=== PATIENT | female | born 1975 | race Caucasian/White ===

== ENCOUNTER 2019-09-02 16:00 | Emergency (ER) | payer OTHER, SELFPAY ==
--- NOTE | ~2019-09-02 | XR_ITS ---
EXAMINATION: XR chest 2V DATE: 09/02/2019 17:33 INDICATION: 5 weeks of productive cough TECHNIQUE: frontal and lateral views of the chest were obtained. COMPARISON: Chest radiograph dated 08/23/2016 FINDINGS: The lungs remain clear with no focal airspace opacities, pulmonary edema, pleural effusion or pneumot horax. The cardiomediastinal silhouette is normal. Visualized bones and soft tissues are unremarkable . IMPRESSION: 1. No acute cardiopulmonary disease. Reviewed, dictated and finalized at location A. [employer]
[2019-09-02 16:20] VITALS: BP 126/74; PULSE 81; RESP 16; TEMP 37.3; O2SAT 99
--- NOTE | 2019-09-02 17:01 | ED.URI ---
HPI - URI/Sore Throat General Chief Complaint: Upper Respiratory Infection Stated Complaint: Cough/Congestion Time Seen by Provider: 09/02/19 16:54 Source: patient and RN notes reviewed Mode of arrival: ambulatory Limitations: no limitations History of Present Illness HPI Narrative: Patient presents today with a one-month history of cough. After 3 weeks, patient believes she was improving, but then worsened again several days ago. Reports the cough was productive initially at times, but is no longer. She also complains of fatigue. was recently diagnosed with aspiration pneumonia and she has been at the hospital with him for the past week. Reports history of asthma. She has been occasionally taking NyQuil, Mucinex, and using an inhaler without relief. She does not smoke or vape. MD elicited complaint: cough Related Data Allergies Allergy/AdvReac Type Severity Reaction Status Date / Time Penicillins AdvReac Intermediate Nausea and Verified 09/02/19 16:50 Vomiting Review of Systems Review of Systems: Narrative: CONSTITUTIONAL: Denies body aches, fever, chills, or sweats.+ Fatigue EYES: Denies visual changes, redness, or discharge. ENT: Denies rhinorrhea, congestion, sore throat, or otalgia. CARDIOVASCULAR: Denies chest pain, palpitations, or edema. RESPIRATORY: Denies dyspnea.+ Cough GASTROINTESTINAL: Denies abdominal pain, nausea, vomiting, or diarrhea. GENITOURINARY: Denies dysuria or hematuria. SKIN: Denies rash, itching, or wounds. MUSCULOSKELETAL: Denies back pain, joint pain, or myalgia. NEUROLOGIC: Denies headache, numbness, tingling, or weakness. PSYCH: Denies depression or anxiety. [facility] Past Medical History Medical History (Updated 09/02/19 @ 17:45 by Tita Bailey, [facility], ) Asthma Family History Family History (Updated 03/02/17 @ 13:11 by DOCTOR UNKNOWN) Father Hypertension Family history of lung cancer Family history of hypercholesterolemia Cerebrovascular accident Mother Family history of chronic obstructive pulmonary disease Grandparent Diabetes mellitus Cerebrovascular accident Family history of lung cancer Social History Social History Smoking status: Never smoker Second hand tobacco smoke exposure: No Alcohol intake: current Comments At time of signature, I have reviewed and agree with nursing past medical, surgical, social and family history unless otherwise noted. Please see nursing chart for further information. There is no relevant family history pertinent to the presenting complaint Exam Narrative: Exam Narrative: GENERAL: Well-appearing, well-nourished, and in no acute distress. HEAD: Normocephalic, atraumatic. EYES: EOMI. No redness or drainage. Conjunctivae normal. ENT: Mucous membranes pink and moist. Nares clear. No rhinorrhea. TMs normal bilaterally. Throat normal. Uvula midline. NECK: Normal AROM. Supple. No lymphadenopathy. CHEST: No respiratory distress. Clear to auscultation. HEART: Regular rate and rhythm. No murmur appreciated. Normal peripheral pulses. EXTREMITIES: Normal range of motion. No edema. SKIN: Warm, dry, no rash. NEURO: No focal deficits. Alert and oriented x3. Gait steady. PSYCH: Normal affect. No signs of depression or anxiety. Course Vital Signs Vital signs: Vital Signs Temperature 99.2 F 09/02/19 16:20 Pulse Rate 81 09/02/19 16:20 Respiratory Rate 16 09/02/19 16:20 Blood Pressure 126/74 09/02/19 16:20 Pulse Oximetry 99 09/02/19 16:20 Temperature 99.2 F 09/02/19 16:20 Pulse Rate 81 09/02/19 16:20 Respiratory Rate 16 09/02/19 16:20 Blood Pressure 126/74 09/02/19 16:20 Pulse Oximetry 99 09/02/19 16:20 Reviewed. Pt has been instructed to follow up with her PCP regarding her elevated blood pressure today. MDM - URI/Sore Throat Differential Diagnosis Differential diagnosis: Likely upper respiratory infection, bronchitis and other (Pneumonia) Imaging Data Radiologis
== END 2019-09-02 17:48 | disposition home or self-care (01) ==
PROVIDERS: Emergency Provider Nurse Practitioner
DX: J40 Bronchitis, not specified as acute or chronic (principal); K21.9 Gastro-esophageal reflux disease without esophagitis; M19.90 Unspecified osteoarthritis, unspecified site
CPT/HCPCS: 71046; 99213; G0463

== ENCOUNTER 2019-10-10 07:56 | Emergency (ER) | payer OTHER, SELFPAY ==
--- NOTE | ~2019-10-10 | XR_ITS ---
EXAMINATION: XR elbow RT min 3V DATE: 10/10/2019 08:34 INDICATION: Right elbow injury and pain. TECHNIQUE: 4 views of right elbow were obtained. COMPARISON: None. FINDINGS: Bone alignment is normal. No fracture. Joint spaces are well maintained. There is no elbow joint effusion. IMPRESSION: 1. Normal right elbow. Reviewed, dictated and finalized at location A. IMPRESSION: 1. Normal right elbow.
--- NOTE | ~2019-10-10 | XR_ITS ---
EXAMINATION: XR thoracic spine min 4V DATE: 10/10/2019 08:34 INDICATION: Thoracic back pain. Injury. TECHNIQUE: 3 views of thoracic spine were obtained. COMPARISON: Chest 2 views 09/02/2019 FINDINGS: There is 5 degrees levocurvature of thoracic spine. Vertebral body heights are normal. Ther e is mildly decreased disc height at multiple levels in upper thoracic spine. There are endplate oste ophytes at multiple levels. IMPRESSION: 1. Mild thoracic spondylosis. Reviewed, dictated and finalized at location A.
[2019-10-10 08:05] VITALS: BP 112/61; PULSE 86; RESP 18; TEMP 36.6; O2SAT 100
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
[2019-10-10] MEDS: IBUPROFEN 600 MG TABLET PO (08:53)
== END 2019-10-10 09:10 | disposition home or self-care (01) ==
PROVIDERS: Emergency Provider Emergency Medicine
DX: S29.019A Strain of muscle and tendon of unspecified wall of thorax, initial encounter (principal); S46.911A Strain of unspecified muscle, fascia and tendon at shoulder and upper arm level, right arm, initial encounter; J45.909 Unspecified asthma, uncomplicated; W18.39XA Other fall on same level, initial encounter
CPT/HCPCS: 72074; 73080; 99284; A9270